=== PATIENT | male | born 1995 | race American Indian/Alaskan Native ===

== ENCOUNTER 2016-08-31 17:51 | Emergency (ER) | payer OTHER ==
[2016-08-31 18:10] VITALS: BP 145/80; PULSE 57; RESP 18; TEMP 97.7; O2SAT 100
--- NOTE | 2016-08-31 18:26 | C.PDOC ---
History Of Present Illness A 21 y/o male presents to the ER c/o right hand pain 2 days ago. Patient notes that he dropped a cast iron skillet on his hand. Patient denies fever, chills, any other trauma, numbness nor weakness. Patient took Ibuprofen with no relief of pain. Time Seen by Provider: 08/31/16 17:58 Chief Complaint (Nursing): Finger,Hand,&Wrist History Per: Patient History/Exam Limitations: no limitations Onset/Duration Of Symptoms: Days Current Symptoms Are (Timing): Still Present Quality: "Pain" Severity: Mild Recent travel outside of the [place]: No Additional History Per: Patient Past Medical History Reviewed: Historical Data, Nursing Documentation, Vital Signs Vital Signs: Last Vital Signs Temp 97.7 F 08/31/16 17:53 Pulse 57 L 08/31/16 17:53 Resp 18 08/31/16 17:53 BP 145/80 08/31/16 17:53 Pulse Ox 100 08/31/16 18:41 - Medical History PMH: No Chronic Diseases Family History: States: Unknown Family Hx - Social History Hx Alcohol Use: No Hx Substance Use: No - Immunization History Hx Tetanus Toxoid Vaccination: No Hx Influenza Vaccination: No Hx Pneumococcal Vaccination: No Review Of Systems Except As Marked, All Systems Reviewed And Found Negative. Constitutional: Negative for: Fever, Chills Musculoskeletal: Positive for: Hand Pain (Right hand pain ) Neurological: Negative for: Weakness, Numbness Physical Exam - Physical Exam Appears: Non-toxic, No Acute Distress Skin: Warm, Dry Head: Atraumatic, Normacephalic Eye(s): bilateral: Normal Inspection, EOMI Nose: Normal Oral Mucosa: Moist Neck: Normal, Normal ROM Chest: Symmetrical Cardiovascular: Rhythm Regular, No Murmur Respiratory: Normal Breath Sounds, No Accessory Muscle Use, No Rales, No Rhonchi , No Wheezing Extremity: Normal ROM, Tenderness, Capillary Refill (<2secs), No Deformity, Swelling (Mild swelling and tenderness to right dorsal hand along the 1st and 2nd metacarpal) Extremity: Bilateral: Normal Color And Temperature, Normal ROM Pulses: Left Radial: Normal, Right Radial: Normal Neurological/Psych: Oriented x3, Normal Speech, Normal Motor, Normal Sensation ED Course And Treatment O2 Sat by Pulse Oximetry: 100 (RA) Pulse Ox Interpretation: Normal Medical Decision Making Medical Decision Making: Impression: 21 y/o male c/o right hand pain for 2 days Plans: -XRAY right hand Xray reviewed by me and radiologist, no acute fracture Jens bandage applied. Recommend motrin for pain. Disposition Counseled Patient/Family Regarding: Need For Followup, Rx Given - Disposition Referrals: Anil Hill III, MD [Staff Provider] - Disposition: HOME/ ROUTINE Disposition Time: 18:26 Condition: STABLE Additional Instructions: Your xray is normal, no fracture. Please apply ice to area 15-20 min two to three times per day. Take Motrin or other anti-inflammatory medication, with food to not upset stomach. Follow up with orthopedic if pain persists over one week. Prescriptions: Ibuprofen [Motrin] 600 mg PO Q8 #30 tab Instructions: Contusion in Adults (ED) - POA Present On Arrival: None - Clinical Impression Clinical Impression: Hand contusion - Scribe Statement The provider has reviewed the documentation as recorded by the Scribe Wilton perez All medical record entries made by the Scribe were at my direction and personally dictated by me. I have reviewed the chart and agree that the record accurately reflects my personal performance of the history, physical exam, medical decision making, and the department course for this patient. I have also personally directed, reviewed, and agree with the discharge instructions and disposition.
--- NOTE | 2016-08-31 18:29 | RAD ---
Right hand three views History: Injury. Comparison: None available. Findings: No evidence for acute displaced fracture or dislocation. Mild foreshortening of the 4th and 5th metacarpal bones, nonspecific. Impression: Negative acute. If pain persists, consider MRI.
== END 2016-08-31 18:50 | disposition home or self-care (01) ==
LOC: C.ER 17:51
DX: S60.221A Contusion of right hand, initial encounter (principal); W22.8XXA Striking against or struck by other objects, initial encounter

== ENCOUNTER 2016-11-17 12:55 | Emergency (ER) | payer OTHER ==
[2016-11-17 13:03] VITALS: PULSE 53; TEMP 98.1; O2SAT 100
[2016-11-17 14:22] LABS: BASO # 0.1 K/uL (0.0-0.2); BASO % 1.3 % (0.0-2.0); EOS # 0.4 K/uL (0.0-0.7); EOS % 5.6 % (0.0-4.0); HEMOGLOBIN 16.3 g/dL (12.0-18.0); LYMPH # 2.6 K/uL (1.0-4.3); LYMPH % 36.2 % (20.0-40.0); MEAN CELL VOLUME 90.4 fL (80.0-94.0); MEAN CORPUSCULAR HEMOGLOBIN 30.3 pg (27.0-31.0); MEAN CORPUSCULAR HGB CONC 33.5 g/dL (33.0-37.0); MEAN PLATELET VOLUME 9.1 fL (7.2-11.7); MONO # 0.6 K/uL (0.0-0.8); MONO % 8.3 % (0.0-10.0); NEUT # 3.5 K/uL (1.8-7.0); NEUT % 48.6 % (50.0-75.0); NRBC % 0.1 % (0.0-2.0); RBC 5.38 Mil/uL (4.40-5.90); RED CELL DISTRIBUTION WIDTH 14.7 % (11.5-14.5); WHITE BLOOD COUNT 7.2 K/uL (4.8-10.8)
[2016-11-17 14:32] LABS: GFR AFRICAN-AMERICAN > 60; GFR NON-AFRICAN AMERICAN > 60
[2016-11-17 14:33] LABS: ALB/GLOB RATIO 1.3 (1.0-2.1); ALT/SGPT 21 U/L (21-72); AST/SGOT 23 U/L (17-59); BLOOD UREA NITROGEN 13 mg/dL (9-20)
[2016-11-17 15:40] VITALS: BP 143/89; RESP 18
--- NOTE | 2016-11-17 15:58 | RAD ---
PROCEDURE: CHEST RADIOGRAPH, 1 VIEW HISTORY: chest pain COMPARISON: 11/17/2016 FINDINGS: LUNGS: Mild venous congestion. Right hilar prominence. PLEURA: No pneumothorax or pleural fluid seen. CARDIOVASCULAR: Normal. OSSEOUS STRUCTURES: No significant abnormalities. VISUALIZED UPPER ABDOMEN: Normal. OTHER FINDINGS: None. IMPRESSION: Mild venous congestion. Right hilar prominence.
--- NOTE | 2016-11-17 17:17 | C.PDOC ---
History Of Present Illness 21 yr old male presents to ER with complaints of sharp chest pain since last night. Patient states the symptoms started after smoking marijuana, currently has minimal chest pain. Denies Fhx of early cardiac disease, medial issues, fever, SOB, cough, nausea or vomiting. Time Seen by Provider: 11/17/16 13:30 Chief Complaint (Nursing): Chest Pain History Per: Patient History/Exam Limitations: no limitations Onset/Duration Of Symptoms: Days (1) Past Medical History Reviewed: Historical Data, Nursing Documentation, Vital Signs Vital Signs: Last Vital Signs Temp 98.1 F 11/17/16 15:39 Pulse 53 L 11/17/16 15:39 Resp 18 11/17/16 15:39 BP 143/89 11/17/16 15:39 Pulse Ox 100 11/17/16 17:28 - Medical History PMH: Asthma Family History: States: No Known Family Hx - Social History Hx Alcohol Use: No Hx Substance Use: Yes - Immunization History Hx Tetanus Toxoid Vaccination: No Hx Influenza Vaccination: No Hx Pneumococcal Vaccination: No Review Of Systems Except As Marked, All Systems Reviewed And Found Negative. Constitutional: Positive for: Fever Cardiovascular: Positive for: Chest Pain (Sharp ) Respiratory: Negative for: Cough, Shortness of Breath Gastrointestinal: Negative for: Nausea, Vomiting Physical Exam - Physical Exam Appears: Non-toxic, No Acute Distress Skin: Warm, Dry Head: Atraumatic, Normacephalic Oral Mucosa: Moist Chest: Symmetrical, Tenderness (Minimal tenderness to left sternal border ) Cardiovascular: Rhythm Regular, No Murmur Respiratory: Normal Breath Sounds, No Rales, No Rhonchi, No Wheezing Extremity: Normal ROM, No Swelling Neurological/Psych: Oriented x3, Normal Speech, Normal Motor ED Course And Treatment - Laboratory Results Result Diagrams: 11/17/16 14:16 11/17/16 14:16 ECG: Interpreted By Me, Viewed By Me ECG Rhythm: Sinus Rhythm ECG Interpretation: Normal Interpretation Of ECG: Early repolarization. Rate From EC (BPM ) O2 Sat by Pulse Oximetry: 100 (RA ) Pulse Ox Interpretation: Normal - Other Rad CXR X-Ray: Viewed By Me, Read By Radiologist Interpretation: PROCEDURE: CHEST RADIOGRAPH, 1 VIEW. HISTORY: chest pain. COMPARISON: 11/17/2016. FINDINGS: LUNGS: Mild venous congestion. Right hilar prominence. PLEURA: No pneumothorax or pleural fluid seen. CARDIOVASCULAR: Normal. OSSEOUS STRUCTURES: No significant abnormalities. VISUALIZED UPPER ABDOMEN: Normal. OTHER FINDINGS: None. IMPRESSION: Mild venous congestion. Right hilar prominence. Medical Decision Making Medical Decision Making: PLAN: * CXR * EKG * Drug Screen * Troponin * CBC * CMP * Toradol IVP Disposition - Disposition Referrals: [facility] [Outside] [facility] [Outside] Disposition: HOME/ ROUTINE Disposition Time: 14:50 Condition: IMPROVED Additional Instructions: Thank you for letting us take care of you today. Your provider was Dr. Mata. You were treated for non-cardiac chest pain. The emergency medical care you received today was directed at your acute symptoms. If you were prescribed any medication, please fill it and take as directed. It may take several days for your symptoms to resolve. Return to the Emergency Department if your symptoms worsen, do not improve, or if you have any other problems. Please contact your doctor or call one of the physicians/clinics you have been referred to that are listed on the Patient Visit Information form that is included in your discharge packet. Bring any paperwork you were given at discharge with you along with any medications you are taking to your follow up visit. Our treatment cannot replace ongoing medical care by a primary care provider (PCP) outside of the emergency department. Thank you for allowing the [facility] team to be part of your care today. Follow up with the clinic next week for outpatient care. Prescriptions: Ibuprofen [Motrin] 600 mg PO Q6 PRN #20 tab PRN Reason: Pain, Moderate (4-7) Instructions: Noncardiac Chest Pain (ED) Forms: [employer] (Maltese) - Clinical Impression Clinical Impression: Non-cardiac chest pain - Scribe Statement The provider has reviewed the documentation as recorded by the Scribe Ivory Doran Provider Attestation: All medical record entries made by the Scribe were at my direction and personally dictated by me. I have reviewed the chart and agree that the record accurately reflects my personal performance of the history, physical exam, medical decision making, and the department course for this patient. I have also personally directed, reviewed, and agree with the discharge instructions and disposition.
--- NOTE | 2016-11-18 14:13 | CARD ---
APPROVED REPORT EKG Measurement Heart [id number] <Conclusion> Sinus bradycardia ST elevation, probably due to early repolarization Borderline ECG
== END 2016-11-17 16:06 | disposition home or self-care (01) ==
LOC: C.ER 12:55
DX: R07.89 Other chest pain (principal)
CPT/HCPCS: 71010; 80053; 84484; 85025; 93005; 96374; 99284; J1885

== ENCOUNTER 2016-12-31 10:39 | Emergency (ER) | payer OTHER ==
[2016-12-31 10:50] VITALS: BMI 25.7
[2016-12-31] MEDS ORDERED: Albuterol 0.083% Inhal Sol (2.5 mg/3 mL) UD INH STA (10:58)
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
[2016-12-31 11:18] LABS: BASO # 0.1 K/uL (0.0-0.2); BASO % 0.8 % (0.0-2.0); EOS # 0.4 K/uL (0.0-0.7); EOS % 3.7 % (0.0-4.0); HEMATOCRIT 48.1 % (35.0-51.0); LYMPH # 1.3 K/uL (1.0-4.3); LYMPH % 12.5 % (20.0-40.0); MEAN CELL VOLUME 89.8 fL (80.0-94.0); MEAN CORPUSCULAR HEMOGLOBIN 30.8 pg (27.0-31.0); MEAN CORPUSCULAR HGB CONC 34.4 g/dL (33.0-37.0); MEAN PLATELET VOLUME 8.5 fL (7.2-11.7); MONO # 0.5 K/uL (0.0-0.8); MONO % 4.9 % (0.0-10.0); RED CELL DISTRIBUTION WIDTH 13.9 % (11.5-14.5); WHITE BLOOD COUNT 10.3 K/uL (4.8-10.8)
[2016-12-31 11:29] LABS: ALB/GLOB RATIO 1.2 (1.0-2.1); ALKALINE PHOSPHATASE 54 U/L (38-126); ALT/SGPT 24 U/L (21-72); AST/SGOT 22 U/L (17-59); BILIRUBIN,TOTAL 1.6 mg/dL (0.2-1.3); BLOOD UREA NITROGEN 11 mg/dL (9-20); CALCIUM 9.6 mg/dl (8.6-10.4); CARBON DIOXIDE 29 mmol/L (22-30); CHLORIDE 102 mmol/L (98-107); GFR AFRICAN-AMERICAN > 60; GLUCOSE,RANDOM 85 mg/dL (75-110); POTASSIUM 3.9 mmol/L (3.6-5.2); SODIUM 144 mmol/L (132-148); TOTAL PROTEIN 7.4 g/dL (6.3-8.3)
[2016-12-31] MEDS ORDERED: Albuterol-Ipratrop 3 mg / 0.5 (3 ml) UD ONE ×2 (11:34→13:07)
--- NOTE | 2016-12-31 11:52 | RAD ---
HISTORY: SOB COMPARISON: Chest x-ray performed 11/17/16 TECHNIQUE: Chest PA and lateral FINDINGS: LUNGS: No focal consolidation. Please note that chest x-ray has limited sensitivity for the detection of pulmonary masses. PLEURA: No significant pleural effusion identified. No definite pneumothorax . CARDIOVASCULAR: The cardiomediastinal silhouette appears within normal limits of size. OSSEOUS STRUCTURES: No acute osseous abnormality identified. VISUALIZED UPPER ABDOMEN: Unremarkable. OTHER FINDINGS: None. IMPRESSION: No focal consolidation, significant pleural effusion, or definite pneumothorax identified.
[2016-12-31] MEDS ORDERED: Albuterol-Ipratrop 3 mg / 0.5 (3 ml) UD INH STA (12:52)
[2016-12-31 13:34] VITALS: BP 145/87; PULSE 68; RESP 18; TEMP 98.1
[2016-12-31 15:03] VITALS: O2SAT 100
== END 2016-12-31 13:36 | disposition home or self-care (01) ==
LOC: C.ER 10:39
DX: J98.01 Acute bronchospasm (principal)
CPT/HCPCS: 71020; 80053; 85025; 85378; 94640; 96374; 99285; J1885

== ENCOUNTER 2017-06-27 19:24 | Emergency (ER) | payer OTHER ==
[2017-06-27 19:24] VITALS: BMI 25.7
[2017-06-27 20:15] VITALS: O2SAT 96
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
[2017-06-27 22:26] VITALS: BP 111/73; PULSE 57; RESP 16; TEMP 97.9
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
== END 2017-06-27 22:34 | disposition home or self-care (01) ==
LOC: C.ER 19:24
DX: S90.31XA Contusion of right foot, initial encounter (principal); V03.90XA Pedestrian on foot injured in collision with car, pick-up truck or van, unspecified whether traffic or nontraffic accident, initial encounter; Y92.89 Other specified places as the place of occurrence of the external cause

== ENCOUNTER 2017-07-07 19:27 | Emergency (ER) | payer OTHER ==
[2017-07-07 19:28] VITALS: BMI 25.7
[2017-07-07 19:45] VITALS: BP 121/80; PULSE 60; RESP 20; TEMP 97.6; O2SAT 99
--- NOTE | 2017-07-07 20:40 | C.PDOC ---
History Of Present Illness 22 year old male presents to the ED c/o right foot pain. Patient was seen in the ED on 06/27 for right foot injury, patient had X-Ray done which were negative. Patient followed up with podiatry and was placed on compression dressing and a orthopedic shoe. Patient reports still feeling pain and request to be placed on a different orthopedic shoe. Patient denies weakness, numbness, new injury, trauma, fall. Time Seen by Provider: 07/07/17 20:11 Chief Complaint (Nursing): Lower Extremity Problem/Injury History Per: Patient History/Exam Limitations: no limitations Onset/Duration Of Symptoms: Days Current Symptoms Are (Timing): Still Present Recent travel outside of the [place]: No Additional History Per: Patient - Ankle/Foot Description Of Injury: Other Currently Unable To: Bend Or Move Alleviating Factor(s): OTC Pain Medication Past Medical History Reviewed: Historical Data, Nursing Documentation, Vital Signs Vital Signs: Last Vital Signs Temp 97.6 F 07/07/17 19:39 Pulse 60 07/07/17 19:39 Resp 20 07/07/17 19:39 BP 121/80 07/07/17 19:39 Pulse Ox 99 07/07/17 21:47 - Medical History PMH: Asthma Surgical History: No Surg Hx Family History: States: Unknown Family Hx - Social History Hx Alcohol Use: No Hx Substance Use: Yes - Immunization History Hx Tetanus Toxoid Vaccination: No Hx Influenza Vaccination: No Hx Pneumococcal Vaccination: No Review Of Systems Constitutional: Negative for: Fever Musculoskeletal: Positive for: Foot Pain Skin: Negative for: Rash Neurological: Negative for: Weakness, Numbness Physical Exam - Physical Exam Appears: Non-toxic, No Acute Distress Skin: Normal Color, Warm, Dry Head: Atraumatic, Normacephalic Eye(s): bilateral: Normal Inspection Neck: Normal ROM, Supple Extremity: Normal ROM, Tenderness (left IP joint of great toe), No Pedal Edema, No Calf Tenderness, Capillary Refill (< 2 seconds), No Deformity, No Swelling, Other (dressing intact removed, good toe movements) Pulses: Left Dorsalis Pedis: Normal, Right Dorsalis Pedis: Normal Neurological/Psych: Oriented x3, Normal Motor, Normal Sensation Gait: Steady ED Course And Treatment O2 Sat by Pulse Oximetry: 99 (On RA) Pulse Ox Interpretation: Normal Progress Note: At patient rewuest, pt foot was placed on an Jens bandage and was told to follow up with a patent agent. Disposition Counseled Patient/Family Regarding: Diagnosis, Need For Followup, Rx Given - Disposition Referrals: [facility], private office [Other] Disposition: HOME/ ROUTINE Disposition Time: 20:39 Condition: STABLE Additional Instructions: Leg elevation Motrin for pain Follow up with Podiatry Return to ER if worse Forms: [employer] (Turkmen) - Clinical Impression Clinical Impression: Foot pain, left, Foot contusion - PA / SIGN WIRER / Resident Statement MD/DO has reviewed & agrees with the documentation as recorded. - Scribe Statement The provider has reviewed the documentation as recorded by the Scribe Tres Nieto All medical record entries made by the Scribe were at my direction and personally dictated by me. I have reviewed the chart and agree that the record accurately reflects my personal performance of the history, physical exam, medical decision making, and the department course for this patient. I have also personally directed, reviewed, and agree with the discharge instructions and disposition.
== END 2017-07-07 20:44 | disposition home or self-care (01) ==
LOC: C.ER 19:27
DX: S90.32XD Contusion of left foot, subsequent encounter (principal); X58.XXXD Exposure to other specified factors, subsequent encounter; M79.672 Pain in left foot

== ENCOUNTER 2017-11-23 00:41 | Emergency (ER) | payer OTHER ==
[2017-11-23 00:41] VITALS: BMI 25.7
[2017-11-23 00:59] VITALS: TEMP 98
[2017-11-23 01:40] LABS: BASO # 0.1 K/uL (0.0-0.2); BASO % 0.8 % (0.0-2.0); EOS # 0.1 K/uL (0.0-0.7); EOS % 1.5 % (0.0-4.0); LYMPH # 2.3 K/uL (1.0-4.3); LYMPH % 25.7 % (20.0-40.0); MEAN CELL VOLUME 90.3 fL (80.0-94.0); MEAN CORPUSCULAR HEMOGLOBIN 31.4 pg (27.0-31.0); MEAN CORPUSCULAR HGB CONC 34.8 g/dL (33.0-37.0); MEAN PLATELET VOLUME 8.2 fL (7.2-11.7); MONO # 0.8 K/uL (0.0-0.8); MONO % 8.7 % (0.0-10.0); NEUT # 5.8 K/uL (1.8-7.0); NEUT % 63.3 % (50.0-75.0); RBC 4.76 Mil/uL (4.40-5.90); WHITE BLOOD COUNT 9.1 K/uL (4.8-10.8)
[2017-11-23 01:56] LABS: ALBUMIN 4.7 g/dL (3.5-5.0); ALT/SGPT 27 U/L (21-72); AST/SGOT 19 U/L (17-59); BLOOD UREA NITROGEN 11 mg/dL (9-20); CALCIUM 9.4 mg/dl (8.6-10.4); GFR AFRICAN-AMERICAN > 60; GFR NON-AFRICAN AMERICAN > 60
[2017-11-23] MEDS ORDERED: Potassium Chloride 20 mEq ER Tab PO STA (01:57)
--- NOTE | 2017-11-23 02:00 | C.PDOC ---
History Of Present Illness 22 year old male presents to the ED for evaluation. Patient reports that earlier today after leaving his girlfriend's house he felt lightheaded, nauseous when he felt liquid in his mouth and then noticed a puddle of blood on the floor. Patient is also c/o left flank pain and a cough as well. Patient denies fever, chills, diarrhea, abdominal pain, rash, injury, fall, trauma, weakness, numbness. denies melena Time Seen by Provider: 11/23/17 01:11 Chief Complaint (Nursing): GI Problem History Per: Patient History/Exam Limitations: no limitations Onset/Duration Of Symptoms: Days Current Symptoms Are (Timing): Still Present Location Of Pain/Discomfort: Other (left flank) Radiation Of Pain To:: Flank Quality Of Discomfort: "Pain" Associated Symptoms: Vomiting. denies: Fever Exacerbating Factors: None Recent travel outside of the [place]: No Additional History Per: Patient, Family Past Medical History Reviewed: Historical Data, Nursing Documentation, Vital Signs Vital Signs: Last Vital Signs Temp 98 F 11/23/17 03:14 Pulse 58 L 11/23/17 05:15 Resp 20 11/23/17 05:15 BP 115/73 11/23/17 05:15 Pulse Ox 98 11/24/17 05:02 - Medical History PMH: Asthma Other PMH: 'kidney and lung problem' Surgical History: No Surg Hx Family History: States: Unknown Family Hx - Social History Hx Alcohol Use: Yes Hx Substance Use: Yes - Immunization History Hx Tetanus Toxoid Vaccination: No Hx Influenza Vaccination: No Hx Pneumococcal Vaccination: No Review Of Systems Constitutional: Negative for: Fever, Chills ENT: Negative for: Ear Discharge, Nose Discharge, Throat Pain, Throat Swelling Cardiovascular: Negative for: Chest Pain, Palpitations Respiratory: Positive for: Cough. Negative for: Shortness of Breath Gastrointestinal: Positive for: Vomiting ( one episode, blood per patient), Other (left flank pain). Negative for: Abdominal Pain Genitourinary: Negative for: Dysuria, Frequency Skin: Negative for: Rash Neurological: Negative for: Weakness, Numbness Physical Exam - Physical Exam Appears: Non-toxic, No Acute Distress Skin: Normal Color, Warm, Dry, No Rash, No Jaundice Head: Atraumatic, Normacephalic Eye(s): bilateral: Normal Inspection Oral Mucosa: Moist Throat: No Erythema, No Exudate Neck: Normal ROM, Supple Chest: Symmetrical, No Deformity, No Tenderness Cardiovascular: Rhythm Regular, No Murmur Respiratory: Normal Breath Sounds, No Rales, No Rhonchi, No Wheezing Gastrointestinal/Abdominal: Bowel Sounds (normoactive), Soft, Tenderness ( reproducible left flank on palpation ), No Guarding, No Rebound, Other (loose skin, c/w weight loss) Back: Normal Inspection, No Vertebral Tenderness, Other (left flank/lumbar area tender; no warmth, erythema or swelling noted. ) Extremity: Normal ROM, No Tenderness, No Swelling Extremity: Bilateral: Atraumatic Neurological/Psych: Oriented x3, Normal Speech, Normal Cognition Gait: Steady ED Course And Treatment - Laboratory Results Result Diagrams: 11/23/17 01:37 11/23/17 01:37 O2 Sat by Pulse Oximetry: 98 (ON RA) Pulse Ox Interpretation: Normal - CT Scan/US CT abd/pelvis Other Rad Studies (CT/US): Read By Radiologist, Radiology Report Reviewed CT/US Interpretation: EXAM: CT Abdomen and Pelvis Without Intravenous Contrast. CLINICAL HISTORY: 22 years old, male; Pain; Abdominal pain; Flank; Left; Additional info: Left. flank pain. TECHNIQUE: Axial computed tomography images of the abdomen and pelvis without intravenous. contrast. All CT scans at this facility use at least one of these dose optimization techniques: automated exposure control; mA and/or kV adjustment per patient size (includes targeted exams. where dose is matched to clinical indication); or iterative reconstruction. Coronal and sagittal. reformatted images were created and reviewed. COMPARISON: No relevant prior studies available. FINDINGS: Lung bases: Unremarkable. No mass. No consolidation. ABDOMEN: Liver: Unremarkable. Gallbladder and bile ducts: Unremarkable. No calcified stones. No ductal dilation. Pancreas: Unremarkable. No ductal dilation. Spleen: Unremarkable. No splenomegaly. Adrenals: The adrenal glands are not clearly seen. Kidneys and ureters: No stones in either kidney or ureter and no definite hydronephrosis. Stomach and bowel: Unremarkable. No obstruction. No mucosal thickening. PELVIS: Appendix: The appendix is not seen. Bladder: Unremarkable. No stones. Reproductive: Unremarkable as visualized. ABDOMEN and PELVIS: Intraperitoneal space: Unremarkable. No free air. No significant fluid collection. Bones/joints: No acute fracture. No dislocation. Soft tissues: Mild diffuse subcutaneous edema suggesting anasarca. DEMETRIUS, MANSOOR | Preliminary Radiology Report. CONFIDENTIALITY STATEMENT. This report is intended only for the use of the referring physician, and only in accordance with law, If you received this in error, call [phone]. Page 2 of 2. Vasculature: Unremarkable. No abdominal aortic aneurysm. Lymph nodes: Unremarkable. No enlarged lymph nodes. IMPRESSION: 1. Mild diffuse subcutaneous edema suggesting anasarca. 2. No stones in either kidney or ureter and no definite hydronephrosis. Thank you for allowing us to participate in the care of your patient. Dictated and Authenticated by: Nitin Stevens MD. 11/23/2017 5:37 AM Eastern Time ([place] & [place]) Against Medical Advice - AMA Patient Left Against Medical Advice: The patient declines admission to the hospital and wishes to leave the Emergency Department. This action is against my medical advice. This decision was made with informed refusal. The patient was told that admission to the hospital is necessary. Explanation of the reasons why were discussed. The risks of leaving were explained to the patient and include, but are not limited to, worsening of known or currently unknown conditions, permanent disability and from undiagnosed or untreated conditions. The patient has the capacity to make this informed decision and understands my explanation of the current medical problem and risks of leaving. The patient voluntarily accepts these risks and signed an AMA form documenting our conversation. The patient was given the opportunity to ask questions and reconsider. The patient was encouraged to return to the Emergency Department at any time for further care. Medical Decision Making Medical Decision Making: Plan: * Labs * CXR * UA 0400 cxr reviewed, neg; cbc and comp normal. ua with le and wbc. no rbc. pt denies any urinary symptoms. denies penile discharge. pt re-evaluated; pt with no abdominal pain. no nausea, no vomiting in ed. still c/o left flank pain. 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 pt said he had problem with kidney ( unspecified) in past; on re-exam., pt still with left flank tenderness, will get ct ab/pel non con to evaluate kidneys. pt with shellfish allergy, will avoid iv contrast. pt has been resting and sleeping entire evening in no distress. 06:10 - patient was informed of abnormal findings in the CT scan and was offered admission for observation and GI consult . Patient refuses stating " I do not want to stay in this [facility]". While talking with the patient he proceeded to get up and walk towards the door. Patient did not stay to sign AMA paperwork. RN removed pt's heplock prior to his leaving. Pt appears to be in no distress. 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 - Scribe Statement The provider has reviewed the documentation as recorded by the Scribe Tres Nieto All medical record entries made by the Scribe were at my direction and personally dictated by me. I have reviewed the chart and agree that the record accurately reflects my personal performance of the history, physical exam, medical decision making, and the department course for this patient. I have also personally directed, reviewed, and agree with the discharge instructions and disposition.
[2017-11-23] MEDS ORDERED: Potassium Chloride 20 mEq ER Tab PO ONE (02:09)
[2017-11-23 02:15] LABS: LIPASE 39 U/L (23-300)
[2017-11-23] MEDS ORDERED: Sodium Chloride 0.9% 1,000 ML IV ONE (02:54)
[2017-11-23 03:30] LABS: SQUAMOUS EPITHIAL < 1 /hpf (0-5); URINE BACTERIA RARE (<OCC); URINE BILIRUBIN NEGATIVE (NEGATIVE); URINE BLOOD NEGATIVE (NEGATIVE); URINE CLARITY Clear (Clear); URINE COLOR Yellow (YELLOW); URINE GLUCOSE (UA) NORMAL (Normal); URINE LEUKOCYTE ESTERASE 1+ Leu/uL (Negative); URINE PROTEIN 1+ mg/dL (NEGATIVE)
[2017-11-23 04:11] LABS: BARBITURATES, UR NEGATIVE (NEGATIVE); BENZODIAZEPINES, UR NEGATIVE (NEGATIVE); OPIATES, UR NEGATIVE (NEGATIVE); PHENCYCLIDINE, UR NEGATIVE (NEGATIVE)
[2017-11-23 05:17] VITALS: BP 115/73; PULSE 58; RESP 20
[2017-11-23 05:39] VITALS: O2SAT 98
--- NOTE | 2017-11-23 15:12 | CT ---
Date of service: 11/23/2017 PROCEDURE: CT Abdomen and Pelvis without intravenous contrast HISTORY: left flank pain COMPARISON: None. TECHNIQUE: Axial and reformatted coronal and sagittal CT images of the abdomen and pelvis were obtained without IV or oral contrast administration. Contrast dose: 0 Radiation dose: Total exam DLP = 368.31 mGy-cm. This CT exam was performed using one or more of the following dose reduction techniques: Automated exposure control, adjustment of the mA and/or kV according to patient size, and/or use of iterative reconstruction technique. FINDINGS: LOWER THORAX: Unremarkable. LIVER: Limited assessment without IV contrast administration. GALLBLADDER AND BILE DUCTS: No evidence of cholecystitis PANCREAS: Unremarkable. No gross lesion or ductal dilatation. SPLEEN: Unremarkable. ADRENALS: Unremarkable. No mass. KIDNEYS AND URETERS: Unremarkable. No hydronephrosis. No solid mass. VASCULATURE: Unremarkable. No aortic aneurysm. BOWEL: Unremarkable. No obstruction. No gross mural thickening. APPENDIX: Unremarkable. Normal appendix. PERITONEUM: Unremarkable. No free fluid. No free air. LYMPH NODES: Unremarkable. No enlarged lymph nodes. BLADDER: Unremarkable. REPRODUCTIVE: Unremarkable. BONES: No acute fracture. OTHER FINDINGS: Mild diffuse soft tissue edema suggestive of mild anasarca. IMPRESSION: No evidence of nephrolithiasis or hydronephrosis. Mild anasarca. Suboptimal evaluation without IV or oral contrast administration. Preliminary report was submitted by virtual Radiology.
--- NOTE | 2017-11-23 15:22 | RAD ---
Date of service: 11/23/2017 HISTORY: cough COMPARISON: Comparison is made with 12/31/2016 TECHNIQUE: Chest PA and lateral FINDINGS: LUNGS: No active pulmonary disease. PLEURA: No significant pleural effusion identified. No pneumothorax apparent. CARDIOVASCULAR: Normal. OSSEOUS STRUCTURES: No significant abnormalities. VISUALIZED UPPER ABDOMEN: Normal. OTHER FINDINGS: None. IMPRESSION: No active disease.
== END 2017-11-23 06:09 | disposition left against medical advice (07) ==
LOC: C.ER 00:41
DX: K92.0 Hematemesis (principal); R10.9 Unspecified abdominal pain; R60.1 Generalized edema
CPT/HCPCS: 71046; 74176; 80053; 80320; 80324; 80345; 80346; 80349; 80353; 80358; 80361; 81001; 83690; 83992; 85025; 96360; 99284; J7030

== ENCOUNTER 2018-02-05 19:31 | Emergency (ER) | payer OTHER ==
[2018-02-05 19:31] VITALS: BMI 25.7
[2018-02-05 19:44] VITALS: BP 139/89; PULSE 67; RESP 20; TEMP 98.2; O2SAT 99
[2018-02-05] MEDS ORDERED: Lidocaine 1% Inj (20ml) INFIL ONE (20:14)
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
[2018-02-05] MEDS ORDERED: Lidocaine Hydrochloride 5 ML INJ ONE (20:21)
== END 2018-02-05 20:53 | disposition home or self-care (01) ==
LOC: C.ER 19:31
DX: S01.511A Laceration without foreign body of lip, initial encounter (principal); W22.8XXA Striking against or struck by other objects, initial encounter

== ENCOUNTER 2018-04-03 17:34 | Emergency (ER) | payer OTHER ==
[2018-04-03 17:53] VITALS: BMI 27.4
[2018-04-03 17:57] VITALS: BP 125/83; PULSE 93; RESP 18; TEMP 98; O2SAT 98
--- NOTE | 2018-04-03 18:30 | C.PDOC ---
History Of Present Illness 22 y/o male, right hand dominant, presents to the ED for evaluation of left hand injury sustained today. Patient states while at work today they were testing a lift, when he fell and landed on his left hand. Now complains of pain to the hand. Otherwise denies any head injury, LOC, numbness, tingling, or other injury. Patient is able to move the wrist and digits. Time Seen by Provider: 04/03/18 18:02 Chief Complaint (Nursing): Finger,Hand,&Wrist History Per: Patient History/Exam Limitations: no limitations Onset/Duration Of Symptoms: Hrs Current Symptoms Are (Timing): Still Present Past Medical History Reviewed: Historical Data, Nursing Documentation, Vital Signs Vital Signs: Last Vital Signs Temp 98.0 F 04/03/18 17:54 Pulse 93 H 04/03/18 17:54 Resp 18 04/03/18 17:54 BP 125/83 04/03/18 17:54 Pulse Ox 98 04/03/18 17:54 - Medical History PMH: Asthma Family History: States: Unknown Family Hx - Social History Hx Alcohol Use: No (PT DENIES) Hx Substance Use: Yes - Immunization History Hx Tetanus Toxoid Vaccination: Yes (less than one year ago) Hx Influenza Vaccination: No Hx Pneumococcal Vaccination: No Review Of Systems Except As Marked, All Systems Reviewed And Found Negative. Constitutional: Negative for: Fever Musculoskeletal: Positive for: Hand Pain Skin: Negative for: Rash, Lesions Neurological: Negative for: Weakness, Numbness Physical Exam - Physical Exam Appears: Well, Non-toxic, No Acute Distress Skin: Warm, Dry, No Ecchymosis Head: Atraumatic, Normacephalic Eye(s): bilateral: Normal Inspection Neck: Normal ROM Chest: Symmetrical Respiratory: No Accessory Muscle Use, Other (No respiratory distress) Extremity: Tenderness (to left dorsal wrist and hand), Capillary Refill (less than 2 sec), No Deformity, No Swelling, Other (Decreased ROM secondary to pain) Pulses: Left Radial: Normal, Right Radial: Normal Neurological/Psych: Oriented x3, Normal Motor, Normal Sensation Gait: Steady ED Course And Treatment O2 Sat by Pulse Oximetry: 98 (RA) Pulse Ox Interpretation: Normal - Other Rad X-ray left wrist X-Ray: Read By Radiologist Interpretation: Accession No. : [id number]. Patient Name / ID : DEMETRIUS MAX / [id number]. Exam Date : 04/03/2018 18:10:30 ( Approved ). Study Comment : Sex / Age : M / 22Y. Creator : Daija Rodriguez. Dictator : Martha Andrade MD. Certified Executive Chef : Geriatric Aide : Martha Andrade MD. Approver2 : Report Date : 04/03/2018 18:23:28. My Comment : . PROCEDURE: Left Wrist Radiographs. HISTORY: hand injury. COMPARISON: None available. FINDINGS: BONES: No acute displaced fracture. JOINTS: No dislocation. SOFT TISSUES: Unremarkable. No evidence of radiopaque foreign body. OTHER FINDINGS: None. IMPRESSION: No acute displaced fracture, dislocation, or significant joint effusion identified. If symptoms persist, or if there is continued clinical concern, x-ray follow-up in 7-10 days should be considered. X-ray left hand X-Ray: Read By Radiologist Interpretation: Accession No. : [id number]. Patient Name / ID : DEMETRIUS MAX / [id number]. Exam Date : 04/03/2018 18:10:19 ( Approved ). Study Comment : Sex / Age : M / 22Y. Creator : Daija Rodriguez. Dictator : Martha Andrade MD. Certified Executive Chef : Geriatric Aide : Martha Andrade MD. Approver2 : Report Date : 04/03/2018 18:23:28. My Comment : . PROCEDURE: Left Hand Radiographs. HISTORY: hand injury. COMPARISON: None available. FINDINGS: BONES: No acute displaced fracture. JOINTS: No dislocation. SOFT TISSUES: Unremarkable. No evidence of radiopaque foreign body. OTHER FINDINGS: None. IMPRESSION: No acute displaced fracture, dislocation, or significant joint effusion identified. If symptoms persist, or if there is continued clinical concern, x-ray follow-up in 7-10 days should be considered. Medical Decision Making Medical Decision Making: Impression: Hand Contusion Plan: --Motrin 600 mg PO --Left hand x-ray --Left wrist x-ray Wrist splint applied by CP. Imaging shows no acute fracture, patient notified. Plan is to discharge patient home, referral for ortho provided. Disposition Counseled Patient/Family Regarding: Studies Performed, Diagnosis, Need For Followup, Rx Given - Disposition Referrals: Javier Carr MD [Staff Provider] - Disposition: HOME/ ROUTINE Disposition Time: 18:29 Condition: STABLE Additional Instructions: follow up with your doctor within 2 days call to make an appointment take medications as prescribed return to ER if symptoms worsens or progress rest, ice, elevate Prescriptions: Naproxen [Naprosyn] 500 mg PO BID PRN #16 tab PRN Reason: Pain, Moderate (4-7) Instructions: Contusion (DC) Forms: General Discharge Instructions, [facility] (Estonian), Work Excuse - Clinical Impression Clinical Impression: Hand contusion - Scribe Statement The provider has reviewed the documentation as recorded by the Jan Hampton Provider Attestation: All medical record entries made by the Conradoibshemar were at my direction and personally dictated by me. I have reviewed the chart and agree that the record accurately reflects my personal performance of the history, physical exam, medical decision making, and the department course for this patient. I have also personally directed, reviewed, and agree with the discharge instructions and disposition.
--- NOTE | 2018-04-03 18:44 | RAD ---
PROCEDURE: Left Hand Radiographs. HISTORY: hand injury COMPARISON: None available. FINDINGS: BONES: No acute displaced fracture. JOINTS: No dislocation. SOFT TISSUES: Unremarkable. No evidence of radiopaque foreign body. OTHER FINDINGS: None. IMPRESSION: No acute displaced fracture, dislocation, or significant joint effusion identified. If symptoms persist, or if there is continued clinical concern, x-ray follow-up in 7-10 days should be considered.
--- NOTE | 2018-04-03 18:48 | RAD ---
PROCEDURE: Left Wrist Radiographs. HISTORY: hand injury COMPARISON: None available. FINDINGS: BONES: No acute displaced fracture. JOINTS: No dislocation. SOFT TISSUES: Unremarkable. No evidence of radiopaque foreign body OTHER FINDINGS: None. IMPRESSION: No acute displaced fracture, dislocation, or significant joint effusion identified. If symptoms persist, or if there is continued clinical concern, x-ray follow-up in 7-10 days should be considered.
== END 2018-04-03 18:50 | disposition home or self-care (01) ==
LOC: C.ER 17:34
DX: S60.222A Contusion of left hand, initial encounter (principal); W19.XXXA Unspecified fall, initial encounter; Y92.89 Other specified places as the place of occurrence of the external cause; Y99.0 Civilian activity done for income or pay